=== PATIENT | female | born 1980 | race Caucasian/White ===

== ENCOUNTER 2019-02-17 13:35 | Emergency (ER) | payer OTHER ==
[2016-06-25 09:23] VITALS: BMI 27.1
[~2019-02-17 13:35] MED LIST: ACE3 PO; CEP500 PO; IBU600 PO; IBUP800T37 PO; LOR5 PO; NO ROUTINE MEDS; PER PO; PREN1TAB44; [UNRECOGNIZED DRUG - CODE]
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
[2019-02-17 13:41] VITALS: BP 119/77
--- NOTE | 2019-02-17 14:18 | RADIOLOGY IMAGING REPORT ---
FACILITY: [facility] PATIENT NAME: Julianna Segovia : 1980 MR: [id number] V: [id number] EXAM DATE: ORDERING PHYSICIAN: AMPARO POWELL TECHNOLOGIST: [place] [facility] [place]: Julianna Segovia : 1980 Visit/Account:[id number] Date of Sevice: 02/17/2019 Technique: KNEE 4 VIEW LEFT HISTORY: knee pain, injury Comparison studies: None FINDINGS: There is no acute fracture. The alignment of the left knee is preserved. No knee joint effu arthur. IMPRESSION: 1. No acute osseous process. Report Dictated By: Yayo Mahoney DO at 02/17/2019 2:13 PM Report E-Signed By: Yayo Mahoney DO at 02/17/2019 2:14 PM WSN:[id number]
== END 2019-02-17 15:07 | disposition home or self-care (01) ==
LOC: ER 13:46
DX: S89.92XA Unspecified injury of left lower leg, initial encounter (principal)
CPT/HCPCS: 73564; 99283